=== PATIENT | male | born 1950 | race Caucasian/White ===

== ENCOUNTER 2016-08-16 04:04 | Observation (INO) | payer MEDICARE ==
[2016-08-16] MEDS ORDERED: Aspirin Low Dose CHEW TAB* 81 MG PO ONE (05:32)
--- NOTE | 2016-08-16 05:32 | ED ---
Neurological HPI - HPI Summary HPI Summary: Patient presents for evaluation of intermittent word finding deficit and extremity paresthesia. He had right foot and left hand paresthesia Aylin, but woke this morning with what he describes as word finding deficit. Denies chest pain, systemic symtpoms, trauma, anticoagulant use. - History of Current Complaint Chief Complaint: EDGeneral Stated Complaint: GENERAL ILLNESS Time Seen by Provider: 08/16/16 05:15 Hx Obtained From: Patient Onset/Duration: Gradual Onset Timing: Intermittent Episodes Lasting: - minutes Current Severity: None Pain Intensity: 0 - Allergy/Home Medications Allergies/Adverse Reactions: Allergies Allergy/AdvReac Type Severity Reaction Status Date / Time No Known Allergies Allergy Verified 09/27/14 18:30 PMH/Surg Hx/FS Hx/Imm Hx Cardiovascular History: Reports: Hx Hypertension Musculoskeletal History: Denies: Hx Rheumatoid Arthritis, Hx Osteoporosis Infectious Disease History: No Infectious Disease History: Denies: Traveled Outside the [place] in Last 30 Days - Social History Alcohol Use: None Substance Use Type: Reports: None Smoking Status (MU): Never Smoked Tobacco Review of Systems All Other Systems Reviewed And Are Negative: Yes Physical Exam Triage Information Reviewed: Yes Vital Signs On Initial Exam: Initial Vitals Temp Pulse Resp BP Pulse Ox 98.5 F 70 18 168/111 99 08/16/16 04:05 08/16/16 04:05 08/16/16 04:05 08/16/16 04:05 08/16/16 04:05 Vital Signs Reviewed: Yes Appearance: Positive: Well-Appearing, No Pain Distress, Well-Nourished Skin: Positive: Warm, Skin Color Reflects Adequate Perfusion, Dry Head/Face: Positive: Normal Head/Face Inspection Eyes: Positive: Normal, EOMI, AMRIT Neck: Positive: Supple, Other: - No carotid bruits/thrills. Respiratory/Lung Sounds: Positive: Clear to Auscultation, Breath Sounds Present Cardiovascular: Positive: Normal, RRR, Pulses are Symmetrical in both Upper and Lower Extremities Abdomen Description: Positive: Nontender, No Organomegaly, Soft Musculoskeletal: Positive: Normal, Strength/ROM Intact Neurological: Positive: Normal, Sensory/Motor Intact, Alert, Oriented to Person Place, Time, CN Intact II-III, Reflexes Intact, Normal Gait, Heel to Toe, Finger to Nose, Facial Symmetry, Speech Normal. Negative: Receptive Aphasia, Expressive Aphasia, Cerebellar Dysfunction, Disoriented, Facial Droop, Focal Deficit @, Slurred Speech, Dysphagia, Rhomberg, Ataxic Gait, Dysarthric Aphasia , Pronator Drift Present Diagnostics - Vital Signs Vital Signs Temp Pulse Resp BP Pulse Ox 08/16/16 04:24 72 13 96 08/16/16 04:23 166/99 08/16/16 04:05 98.5 F 70 18 168/111 99 - Laboratory Result Diagrams: 08/16/16 06:02 08/16/16 06:02 Lab Statement: Any lab studies that have been ordered have been reviewed, and results considered in the medical decision making process. 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/Release Non-Paretic Hand: Both Correctly Best Gaze (Only Horizontal Eye Movement): Normal Visual Field Testing: No Visual Loss Facial Paresis-Pt to Smile & Close Eyes or Grimace Symmetry: Normal/Symmetrical Motor Function - Right Arm: No Drift-Holds 10 Seconds Motor Function - Left Arm: No Drift-Holds 10 Seconds Motor Function - Right Leg: No Drift-Holds 10 Seconds Motor Function - Left Leg: No Drift-Holds 10 Seconds Limb Ataxia-Must be out of Proportion to Weakness Present: Absent Sensory (Use Pinprick to Test Arms/Legs/Trunk/Face): Normal Best Language (Describe Picture, Name Items): No Aphasia Dysarthria (Read Several Words): Normal Extinction and Inattention: No Abnormality Total Score: 0 Course/Dx - Differential Dx Differential Diagnoses Neuro: Positive: Dysrhythmia, Metabolic Abnormality, Transient Ischemic Attack, Other - Unclear if this is true TIA, but with age and HTN will admit for observation and neurology consult. - Diagnoses Provider Diagnoses: TIA (transient ischemic attack) Discharge - Discharge Plan Condition: Stable Disposition: ADMITTED TO [facility]
[2016-08-16 06:17] LABS: Hematocrit 49 % (42-52); Hemoglobin 16.7 g/dl (14.0-18.0); Mean Corpuscular HGB Conc 34 g/dl (31-36); Mean Corpuscular Hemoglobin 31 pg (27-31); Mean Corpuscular Volume 90 fL (80-94); Mean Platelet Volume 8 um3 (7.4-10.4); Red Blood Count 5.45 10^6/ul (4.0-5.4); Red Cell Distribution Width 13 % (10.5-15); White Blood Count 6.1 10^3/ul (3.5-10.8)
[2016-08-16 06:28] LABS: BUN/Creatinine Ratio 16.3 (8-20); Calcium 8.8 mg/dL (8.6-10.3); EGFR African American 114.8 (>60); EGFR Non-African American 89.2 (>60); Potassium 3.4 mmol/L (3.5-5.0)
[2016-08-16 08:26] LABS: Urine Bilirubin Negative (Negative); Urine Glucose Negative (Negative); Urine Nitrite Negative (Negative)
[2016-08-16] MEDS ORDERED: Potassium Chlor TAB* 20 MEQ TAB.ER PO ONE (08:52)
--- NOTE | 2016-08-16 09:37 | RAD ---
INDICATION: Confusion COMPARISON: None. TECHNIQUE: Contiguous axial sections of the brain were obtained from the skull base to the vertex without contrast. FINDINGS: The ventricles, cisterns and sulci are within normal limits. There is periventricular and subcortical white matter hypoattenuation compatible with chronic microvascular disease. The left basal ganglia (image 16) there is a 6 mm focal hypodensity. Otherwise the figueroa-white matter differentiation is adequately maintained and there is no sulcal effacement. No significant focal abnormality or mass effect is present. There is no evidence for intracranial hemorrhage. Calcified atherosclerosis is noted at the left vertebral and right petrous carotid arteries. No significant focal osseous abnormality is present. The visualized portion of the paranasal sinuses appear clear. There is partial dependent effusion of the left mastoid air cells and overall the left mastoid air cells are hypoplastic relative to the right. IMPRESSION: 1. CT findings are most compatible with chronic microvascular disease. The left basal ganglia there is an age indeterminant focal hypodensity that could represent a lacunar infarction or perivascular space. The patient is exhibiting focal neurologic deficits further characterization can be made with MRI. 2. Dependent, partial left mastoid air cell effusion in the overall hypoplastic left mastoid air cells relative to the right. Please correlate to any signs or symptoms of mastoiditis (e.g. point tenderness at mastoid process) and history of surgery in this area.
--- NOTE | 2016-08-16 09:38 | RAD ---
INDICATION: Left-sided chest pain COMPARISON: CT dated September 27, 2014 TECHNIQUE: PA and lateral views of the chest were obtained. FINDINGS: The heart and mediastinum are normal in size and contour. The lungs are grossly clear. There is no evidence of large pleural effusion. Visualized bones are normal for the patient's age. There is no radiographic evidence of free air beneath the diaphragm IMPRESSION: No radiographic evidence of acute cardiopulmonary disease.
[2016-08-16] MEDS ORDERED: Acetaminophen TAB* 325 MG PO PRN (09:40)
[2016-08-16] MEDS ORDERED: PROCHLORPERAZINE INJ 5 MG/ML 2 ML VIAL IV PRN (09:40)
[2016-08-16 10:04] LABS: HDL Cholesterol 32.5 mg/dL
[2016-08-16] MEDS ORDERED: Pneumococcal *Vac Polyvalent 0.5 ML VIAL IM ONE (12:00)
[2016-08-16] MEDS: Heparin VIAL(*) 5000 UNITS/ML VIAL (FIVE THOUSAND) SUBCUT SCH ×2 (13:30→21:24)
--- NOTE | 2016-08-16 13:34 | HP ---
CC: Frida Mims MD; Nahed Pena MD, Neurologist HISTORY AND PHYSICAL: DATE OF ADMISSION: 08/16/16 TIME OF EVALUATION: 8:30 a.m. PRIMARY CARE PHYSICIAN: Frida Mims MD CONSULTING NEUROLOGIST: Nahed Pena MD CHIEF COMPLAINT: "I feel funny." HISTORY OF PRESENT ILLNESS: Mr. Fatima is a 66-year-old male with a past medical history of hyperte nsion, not on medication, who presents to the emergency room with complaints of "feeling funny." Pl ease note that the patient is a poor historian and very vague and is very difficult to pinpoint his symptoms. He states he was in his usual state of health until 5 days ago when he went to bed around 10 at [facility] and he notes that his left hand was numb. The numbness lasted for 30 minutes and he later on deve loped right foot numbness. He did not notice any weakness associated with it. He was able to sleep and the next day when he woke up, he was feeling well with no symptoms. Later on, during the day, he developed what he called "queasiness" that he does not describe as nausea, as dizziness, or light headedness, but he cannot tell me exactly what he felt like. He just note that he felt different fr om his usual. He did not seek medical attention, but he at that point was feeling that probably he should have come to the emergency room the night before when he developed the numbness. Yesterday, he was in his usual state of health when he went to bed and he usually wakes up multiple times during the night to go to the bathroom and when he woke up at 3 in the morning, he states that he was having difficulty finding words and that combined with the symptoms he had had the other nig ht made him decide to call 911. He denies dysarthria, but states that he he had difficulty thinking about what he wanted to say to EMS. He acknowledges that he was anxious at that time with what coul d be happening to him. He denies chest pain, palpitations, any localized weakness, visual change, shortness of breath, or u rinary or GI complaints. PAST MEDICAL HISTORY: Hypertension. The patient states he was diagnosed by Dr. Mims and she had recommended antihypertensive medications, but he declined. He does not have a pressure monitor at [facility], so he does not know what his usual numbers are. PAST SURGICAL HISTORY: None. MEDICATION LIST: None. ALLERGIES: No known drug allergies. FAMILY HISTORY: Father needed stents for coronary artery disease. Mother had a stroke. Brother an d sister had hypertension. SOCIAL HISTORY: The patient states that he sporadically drinks red wine. Denies any tobacco or kim g use. 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 Surrogate decision maker is his brother, Jean-Paul Fatima, phone number is [phone]. REVIEW OF SYSTEMS: A 14-point review of system was performed and all the negative and positive find ings are in the HPI. PHYSICAL EXAMINATION GENERAL: The patient is a pleasant gentleman, lying in bed, in no acute distress. VITAL SIGNS: Temperature 98, heart rate is 69, respiratory rate 14, oxygen saturation 98% on room a ir, and blood pressure is 156/99. HEENT: Pupils are equal. Moist mucous membranes. There is no carotid bruits. CHEST: Breath sounds present bilaterally. No added sounds. CVS: Normal S1, S2. Regular rate and rhythm. No murmurs. ABDOMEN: Soft, nontender, and nondistended. Bowel sounds present. EXTREMITIES: No edema. NEUROLOGIC: He is alert, awake, and oriented x3. Face is symmetric. Speech is clear. Power is 5/ 5 in all 4 extremities. Sensation is intact. DIAGNOSTIC STUDIES/LAB DATA: The patient had a CBC that showed a WBC of 6.1, hemoglobin 16.7, jessica tocrit 49, and platelets of 131. Chemistry showed a sodium of 136, potassium 3.4, chloride of 106, bicarb of 27, BUN of 14, creatinine of 0.86, glucose of 94, and calcium 8.8. Urinalysis was normal. CT of the brain shows findings of chronic microvascular disease. In the left basal ganglia, there i s an age-indeterminate focal hypodensity that could represent a lacunar infarction or perivascular s pace. Dependent partial left mastoid air cell effusion in the overall hypoplastic left mastoid air cells collected to the right. Chest x-ray showed no radiographic evidence of acute cardiopulmonary disease. EKG done on August 16 at 6:19 a.m. shows sinus rhythm at 66 beats per minute with no ST-T change s. No significant change when compared to his prior EKG from January 2015. ASSESSMENT AND PLAN: Mr. Fatima is a 66-year-old male with a past medical history of untreated hype rtension who presents to the emergency room with self-limited episodes of left hand numbness, right foot numbness, word-finding difficulty, and queasiness that he cannot really explain exactly what he means. He is going to be admitted for further workup of possible transient ischemic attack. 1. Possible transient ischemic attack: The patient's symptoms are nonspecific, but he does have ri sk factors with his uncontrolled hypertension and his official CT of the brain report suggests micro vascular disease and a possible old lacunar infarct on the left basal ganglia. He will be admitted as observation to the telemetry floor. We are going to check CTA of head and ne ck looking for possible stenosis. We are going to check an echocardiogram with bubble study and a l ipid profile. Neurology consultation was requested with Dr. Pena and the patient will be monitored on telemetry w ith frequent neurological checks. 2. Hypertension: This appears to be a chronic issue. At this point with the possibility of a glass sient ischemic attack, I am going to just monitor his blood pressure and not start any medication un less he goes over 180/100, but he will probably benefit from further evaluation by Dr. Mims as out patient to start an antihypertensive regimen. 3. DVT prophylaxis: The patient has a score 2 on DVT Prophylaxis Risk Assessment Guide and he will receive subcutaneous heparin. 4. Code status: Full. TIME SPENT: Approximately 65 minutes was spent with the patient interview, medical records review, physical examination to complete this admission, and more than half this time was spent [id number] with the patient and coordination of care. [id number]/[facility] #: [id number]
[2016-08-16] MEDS ORDERED: Iohexol 350* (CONTRAST) 500 ML MDV IV SCH (13:52)
--- NOTE | 2016-08-16 18:30 | RAD ---
CPT II: CPT II Codes: 3100F INDICATION: Confusion. COMPARISON: Noncontrast CT of the brain same date TECHNIQUE: A CT angiogram of the head and neck was performed with 80 cc of Omnipaque 350. Contiguous axial sections were obtained from the thoracic inlet through the [place]. Images were reconstructed in the sagittal, coronal planes and in a 3-D volume rendered format. The distal cervical internal carotid artery diameter is used as the denominater for stenosis measurement. CTA NECK: The visualized lung apices exhibit mild centrilobular emphysematous changes. Incidentally noted the left common carotid artery brachiocephalic trunk share an origin compatible with a "bovine arch". The common and internal carotid arteries are patent without hemodynamically significant stenosis. Right: Just below the carotid bifurcation the common carotid artery measures 7 mm in diameter. There is partially calcified atherosclerosis of the carotid bulb and the internal carotid artery measures 6 mm in diameter and immediately after the bifurcation. This yields approximately 15% degree stenosis on the right. Left: Immediately below the carotid bifurcation the common carotid artery measures 10 mm in diameter. Immediately after the bifurcation the internal carotid artery measures 8 mm in diameter. There is a mild degree of noncalcified atherosclerosis of the carotid bulb yielding a proximally 20% degree stenosis. The vertebral arteries are patent without gross abnormality. CTA of the brain: The internal carotid, anterior and middle cerebral arteries appear are patent without high grade stenosis or occlusion. The vertebral, basilar and posterior cerebral arteries appear patent without high grade stenosis or occlusion. The left posterior communicating artery is diminutive relative to the right, but the [place] is complete. No focal luminal filling defect, aneurysm or vascular malformation is seen. IMPRESSION: 1. According to the nascet criteria there is approximately 50% degree stenosis at the right common carotid artery and 20% degree stenosis on the left. 2. There are no definite focal filling defects or other acute arterial abnormalities.
--- NOTE | 2016-08-16 22:17 | CONS ---
CC: Dr. Mims NEUROLOGY CONSULTATION: DATE OF CONSULT: 08/16/16 REQUESTING PHYSICIAN: Lacey Watkins MD. PRIMARY CARE PHYSICIAN: Dr. Mims. REASON FOR CONSULT: Possible TIA. HISTORY OF PRESENT ILLNESS: Trey Fatima is a 66-year-old man with a history of untreated hypertension, who presented to the emergency department overnight with complaint of "feeling funny" and some word finding difficulties. He gets up multiple times at night to use the restroom and upon coming back to bed he felt funny, but he cannot describe this further. He denies lightheadedness, achiness or nausea as the cause for not feeling right. At that point in my history, he noted that as the only symptom that prompted him to call 911 in the context of previously experiencing left hand numbness and right foot numbness 5 days prior, but in my discussion with Dr. Watkins, she had mentioned some word finding difficulties, which he then endorsed on direct questioning. He states that he had trouble thinking of words, though he did not have any difficulty calling 911 for an ambulance. He thinks these symptoms last night lasted approximately 15 minutes and that the symptoms 5 days ago of left hand numbness and right foot numbness may have lasted between 1 and 3 hours. He thinks the left hand went numb first followed by the right foot and then they were numb simultaneously. He also notes a many-year history of wavy lines in his vision off to the left, which occur on an intermittent basis and last for about 15 minutes. He has no headaches following this, though an hand tube bender has suggested that they may be migraine aura. He does not recall whether he had any of this visual phenomenon with his numbness of the hand and foot 5 days ago , but does not think he had any last night. Neurology consultation was requested due to the possibility of TIA. PAST MEDICAL HISTORY: Hypertension for which Dr. Mims has suggested treatment , but the patient has been resistant. Several years ago, he had sudden hearing loss in the left ear, which came back after a day or two and he was given steroids. PAST SURGICAL HISTORY: None. MEDICATIONS: Multivitamin. ALLERGIES: No known drug allergies. FAMILY HISTORY: Father with coronary artery disease, status post stents. Mother with strokes. Brother and sister with hypertension. 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 He drinks occasionally. He denies tobacco or illicit drug use. Lives alone REVIEW OF SYSTEMS: He endorses snoring at night, but denies significant daytime somnolence or feeling poorly rested upon awakening in the morning. He is not aware if he has apneas during the night. He denies any chest pains or palpitations, no breathing difficulties, no skin rashes, no joint swelling. He does endorse some bilateral knee pain, which he attributes to kneeling recently. PHYSICAL EXAMINATION: Vital Signs: Temperature 98.2, blood pressure 153/98, oxygen saturation is 100% on room air. His blood pressure on admission at 4 a.m. was 168/111 and then shortly thereafter 166/99. General Examination: The patient is a well-appearing pleasant man who appears his stated age. Heart revealed a regular rate and rhythm with no murmurs, rubs or gallops. Lungs are clear to auscultation bilaterally. There were no carotid bruits. On neurologic examination, he is fully awake, alert, and oriented. His speech is clear without dysarthria or aphasia. On cranial nerve testing, pupils are equal, round, and reactive from 3 to 2 mm bilaterally. Funduscopic exam was benign. Versions were full without nystagmus. Visual wilburn are full to confrontation. Facial sensation and musculature was full and symmetric. Palate elevates symmetrically and the tongue is midline. Shoulder shrug is full and symmetric. On motor testing, he has no pronator drift. Bulk and tone are normal in the upper and lower extremities with full strength. Sensation is intact to light touch in the upper and lower extremities. [id number] is intact without ataxia. Reflexes are 2+ throughout the upper and lower extremities with downgoing toes bilaterally. Initially, when he stood up and narrowed his base in order to perform the Romberg, he swayed back and forth, and then sat down on the bed, and indicated he thought he was unsteady because he needed to urinate. Upon returning from the bathroom, his Romberg was steady. His gait was narrow based and very steady and he was able to heel and toe walk. DIAGNOSTIC STUDIES/LAB DATA: Laboratory data reviewed includes CBC, which was notable for a slightly low platelet count of 131. Chemistry profile notable for a slightly low potassium of 3.4. Lipid profile, triglycerides 74, total cholesterol 104, LDL 57, and HDL 32.5. Urinalysis was negative. Noncontrast brain CT was personally reviewed and shows some hypoattenuation in the deep white matter suggestive of chronic small vessel ischemic disease. In addition, there is a more focal area of hypodensity in the left basal ganglia, which may be an old lacunar infarct versus prominent perivascular space. CT angiogram of the head and neck was personally reviewed and is not yet read by the radiologist, but on my review there is no significant atherosclerotic disease and no areas of occlusion or significant stenosis. IMPRESSION: Mr. Fatima is a 66-year-old man with history of hypertension that has not been treated, who presented to the emergency department with transient neurologic symptoms last night of word finding difficulties in the setting of recent transient sensory deficit involving the left hand and the right foot. While the episode last night may represent a transient ischemic attack, it is difficult to ascribe all of his recent symptoms to ischemic events given the fact that this would imply multifocal areas of the brain being involved. He does have a risk factor for stroke in his untreated hypertension, but typically this would lead to more focal symptoms in a single brain region. It is unclear whether anxiety could have been playing a role in some of these symptoms. At this point, he is undergoing a transient ischemic attack workup and remains on telemetry for monitoring for atrial fibrillation and echocardiogram is pending. Aspirin was given in the emergency department last night and is continued on the floor here today. His blood pressure is not yet being treated, but as an outpatient, I believe he is coming around to the fact that he should begin a medication for a treatment of the blood pressure. His lipid profile is actually quite good and so I would not suggest a statin at this point. As an outpatient, I think he would benefit from an MRI scan both to assess whether there has been any small stroke with these recent episodes and also to assess the burden of small vessel ischemic changes that may be attributable to his hypertension as this may improve his willingness to treat his hypertension. Thank you for this consultation. [id number]/[facility] #: [id number] JOANNA
[2016-08-17] MEDS: Heparin VIAL(*) 5000 UNITS/ML VIAL (FIVE THOUSAND) SUBCUT SCH ×2 (05:03→13:40)
[2016-08-17] MEDS ORDERED: Aspirin EC Low Dose* 81 MG TAB.EC PO SCH (09:00)
--- NOTE | 2016-08-17 14:31 | PN ---
Progress Note - Progress Note Note: Discharge Note Primary diagnosis: suspicion of TIA Secondary hypertension: uncontrolled hypertension Procedures: none Consults: Dr Pena of neurology Pertinent lab/radiology/other results: CTA head/neck: 15-20% bilateral carotid stenosis echo: moderate LVH, diastolic dysfunction Telemetry: no arrhythmias Tests pending upon discharge: renin, aldosterone consider outpatient MRI brain Physical exam: Vital Signs - 8 hr 08/17/16 08/17/16 08/17/16 07:28 07:45 13:19 Temperature 36.7 C Pulse Rate 67 75 Respiratory 16 16 17 Rate Blood Pressure 150/83 172/100 (mmHg) O2 Sat by Pulse 100 Oximetry Alert, no distress CN II-XII intact Motor 5/5 throughout Speech intact abnormal excess eye contact
[2016-08-17 14:55] LABS: Magnesium 2.2 mg/dL (1.9-2.7)
[2016-08-17] MEDS ORDERED: amLODIPine TAB* 5 MG PO SCH (15:00)
--- NOTE | 2016-08-17 15:17 | ECHO ---
Patient: KOURTNEY HOBBS [facility] Rec#: [id number] : 1950 Date: 08/17/2016 Age: 66y Height: 182.9 cm / 72.0 in Weight: 102.5 kg / 225.9 lbs Sex: M BSA: 2.2 Room#: 444 Admit Date#: 08/16/2016 Type: Inpatient Referring: Lacey Mesa MD Reading: Braydon Vargas MD Street Commissioner: Nenita Tatum RN RDCS CC: Frida Mims MD Transthoracic Echocardiogram Indication: TIA BP: 147/90 HR: 64 Rhythm: NSR Findings History: Untreated HTN. This exam was ordered with a bubble study. However, the patient refused to have the bubble study performed despite an extensive explanation of the benefit of the information that would be obtained. The patient's nurse was informed and will notify the patient's care provider. Technical Comments: The study is technically limited due to patient body habitus. Completed at 1220. Left Ventricle: The left ventricular chamber size is normal. Moderate concentric left ventricular hypertrophy is observed. Septal wall hypertrophy is observed.measuring 1.7cm. Global left ventricular wall motion and contractility are within normal limits. There is normal left ventricular systolic function. The estimated ejection fraction is 55-60%. Abnormal left ventricular diastolic filling is observed, consistent with impaired relaxation. Left Atrium: The left atrium is slightly dilated. Right Ventricle: The right ventricular chamber size and systolic function are within normal limits. Right Atrium: The right atrial cavity size is normal. Aortic Valve: The aortic valve is trileaflet. The aortic valve leaflets are mildly thickened. There is mild aortic regurgitation. There is no evidence of aortic stenosis. Mitral Valve: The mitral valve leaflets are mildly thickened. There is trace to mild mitral regurgitation. There is no evidence of mitral stenosis. Tricuspid Valve: The tricuspid valve leaflets are normal. There is trace tricuspid regurgitation. Unable to estimate the right ventricular systolic pressure. Pulmonic Valve: The pulmonic valve structure is not well visualized. There is a trace pulmonic regurgitation. There is no pulmonic stenosis. Pericardium: There is no significant pericardial effusion. A pericardial fat pad is visualized. Aorta: There is mild dilatation of the ascending aorta. There is no dilatation of the aortic arch. There is moderate dilatation of the aortic root. Pulmonary Artery: The main pulmonary artery is not well visualized. Venous: The venous system is not well visualized. The inferior vena cava is not visualized. Summary: There was not any prior study for comparison. Conclusions The left ventricular chamber size is normal. Moderate concentric left ventricular hypertrophy is observed. Septal wall hypertrophy is observed.measuring 1.7cm. The estimated ejection fraction is 55-60%. Abnormal left ventricular diastolic filling is observed, consistent with impaired relaxation. The left atrium is slightly dilated. There is mild aortic regurgitation. There is trace to mild mitral regurgitation. There is trace tricuspid regurgitation. There is a trace pulmonic regurgitation. There is mild dilatation of the ascending aorta. There is moderate dilatation of the aortic root. Measurements Name Value Normal Range RVDdMajor (2D) 4 cm (2.2 - 4.4) RAd ISD 4CH 4.7 cm (3.4 - 4.9) RA (A4C)W 3.3 cm (2.9 - 4.6) IVSd (2D) 1.7 cm (0.6 - 1) LVPWd (2D) 1.3 cm (0.6 - 1) LVIDd (2D) 4.8 cm (3.6 - 5.4) LVIDs (2D) 3.3 cm - LV FS (2D) 31 % (25 - 45) Aortic Annulus 2.9 cm (1.4 - 2.6) Ao root diameter (2D) 4.2 cm (2.1 - 3.5) Ascending Ao 3.7 cm (2.1 - 3.4) Aortic arch 2.9 cm (1.8 - 3.4) LA dimension (AP) 2D 4.3 cm (2.3 - 3.8) LAd ISD 4CH 5 cm (2.9 - 5.3) LA ISD 4CH W 4 cm (2.5 - 4.5) Name Value Normal Range LA ESV SP 4CH (A/L) 45 ml - LA ESV SP 2CH (A/L) 83 ml - LA ESV BP (A/L) 70 ml - LA ESV BP (A/L) index 31 ml/m2 - LA ESV SP 4CH (MOD) 39 ml - LA ESV SP 2CH (MOD) 77 ml - Name Value Normal Range MV E-wave Vmax 0.44 m/sec - MV deceleration time 302 msec - MV A-wave Vmax 0.73 m/sec - MV E:A ratio 0.6 ratio - LV septal e' Vmax 0.05 m/sec - LV lateral e' Vmax 0.09 m/sec - LV E:e' septal ratio 8.8 ratio - LV E:e' lateral ratio 4.9 ratio - Name Value Normal Range AV Vmax 1.5 m/sec - LVOT Vmax 1.4 m/sec - KEITH Vmax 0.9 m/sec - Name Value Normal Range PV Vmax 0.83 m/sec -
[2016-08-17 16:20] VITALS: BP 169/105
--- NOTE | 2016-08-17 21:40 | DS ---
DISCHARGE SUMMARY: DATE OF ADMISSION: 08/16/16 DATE OF DISCHARGE: 08/17/16 PRIMARY DIAGNOSIS: Possible transient ischemic attack with expressive aphasia, fully resolved. SECONDARY DIAGNOSES: 1. Uncontrolled hypertension, suspicion of mineralocorticoid excess hyperaldosteronism. 2. Left ventricular hypertrophy and diastolic dysfunction on echocardiogram. MEDICATIONS ON DISCHARGE: 1. Amlodipine 5 mg p.o. q. day. 2. Aspirin 81 mg p.o. q. day. HOSPITAL COURSE: The patient was admitted through the emergency department with some vague symptoms that included feeling funny and his left hand numbness. The head CT showed left basal ganglia age-indeterminate hypodensity that could be a lacunar infarct. The patient also had during the hospital stay , a CT angiogram of the head and neck that showed no large branch occlusions and did show a 15% to 20% stenosis on the bilateral carotid arteries. Chest x- ray was negative for infiltrates or effusions. Laboratory tests were notable for potassium 3.4, creatinine 0.86, his white count was 6.1, platelet count was 131. Urinalysis was negative. Echocardiogram showed no valvular disease but did show LVH and some diastolic dysfunction. The patient was seen in consultation by Dr. Pena of Neurology and she was concerned about the uncontrolled hypertension due to the patient's refusal of previous treatment as well as possible word-finding difficulties and transient sensory deficit. Dr. Pena recommended treatment of hypertension and an outpatient MRI to further characterize his EMBEDDER lesions. On the day of discharge, the patient was ambulatory, has intact speech, no new neurologic complaints, no new neurologic signs on physical exam. DISPOSITION: To home. DIET: Should be low salt. ACTIVITY: Should be as tolerated. [id number] #: [id number] [facility]
== END 2016-08-17 17:15 | disposition home or self-care (01) ==
LOC: ED 04:04 → MEDTELE 06:46
PROVIDERS: ADMIT Internal Medicine; ATTEND Internal Medicine
DX: G45.9 Transient cerebral ischemic attack, unspecified (principal); I10 Essential (primary) hypertension; R20.9 Unspecified disturbances of skin sensation; I51.7 Cardiomegaly; I65.23 Occlusion and stenosis of bilateral carotid arteries; Z23 Encounter for immunization
CPT/HCPCS: 36415; 70450; 70496; 70498; 71020; 80048; 80061; 81003; 82088; 83735; 84244; 85027; 90471; 90732; 93005; 93306; 96372; 99284; A9270-GY; G0009; G0378; G8978-GP-CI; G8979-GP-CH; J1644; Q9967

== ENCOUNTER 2016-12-03 15:21 | Emergency (ER) | payer MEDICARE ==
[2016-12-03] MEDS ORDERED: NS 0.9% 1000 ML* 1,000 ML IV SCH (16:00)
--- NOTE | 2016-12-03 16:35 | RAD ---
INDICATION: TIA COMPARISON: August 16, 2016 TECHNIQUE: Noncontrast axial source images were acquired from the skull base to the vertex. FINDINGS: Ventricles/sulci: The ventricles and cisterns are normal in size and configuration for age. Brain parenchyma: There is no focal parenchymal finding, evidence of intracranial mass, or intracranial mass effect. Intracranial hemorrhage:None. Extra-axial spaces: There are no abnormal extra axial fluid collections or evidence of extra-axial mass. Calvarium: There is no calvarial fracture or other calvarial abnormality. Scalp: There is no evidence of scalp or extracalvarial soft tissue abnormality. Paranasal sinuses/mastoid: The paranasal sinuses are clear. There is left mastoiditis. Other: None. IMPRESSION: No acute intracranial findings.
[2016-12-03 19:01] VITALS: BP 152/95
--- NOTE | 2016-12-03 19:51 | ED ---
Jose Godoy SooYoung, scribed for Michele Zhang MD on 12/03/16 at 1613 . Neurological HPI - HPI Summary HPI Summary: A 66 yo M presents to ED with c/o "wavy lines" in L-side of his field of vision onset this AM. Lasted approx 10 minutes. Associated sx: mild RUANO, mild neck soreness. Denies: weakness, numbness in extremities, slurred speech. He notes not sleeping last night. Dr. Mims increased the dosage for his BP med. Currently taking baby aspirin and amlodipine. Pert PMx: Pt had imaging done in September 2016 for possible mini-stroke, sx then include difficulty finding words. - History of Current Complaint Chief Complaint: EDNeurologicalDeficit Stated Complaint: VISION IS BLURY Hx Obtained From: Patient, Medical Records Onset/Duration: Sudden Onset, Resolved Timing: Intermittent Episodes Lasting: - 10-15 mins Onset Severity: Mild Current Severity: Mild Pain Intensity: 0 Pain Scale Used: 0-10 Numeric Character: Visual Changes Associated Signs and Symptoms: Positive: Headache - mildly, Pain - mild neck pain. Negative: Weakness, Impaired Speech, Numbness - Additional Pertinent History Primary Care Physician: DEANGELO - Allergy/Home Medications Allergies/Adverse Reactions: Allergies Allergy/AdvReac Type Severity Reaction Status Date / Time No Known Allergies Allergy Verified 09/04/16 10:15 PMH/Surg Hx/FS Hx/Imm Hx Previously Healthy: No Endocrine/Hematology History: Denies: Hx Diabetes Cardiovascular History: Reports: Hx Hypertension Denies: Hx Pacemaker/ICD GI History: Reports: Other GI Disorders - occasional gas History: Denies: Hx Renal Disease Musculoskeletal History: Denies: Hx Rheumatoid Arthritis, Hx Osteoporosis Sensory History: Denies: Hx Hearing Aid Neurological History: Reports: Hx Transient Ischemic Attacks (TIA) - possible Psychiatric History: Reports: Hx Anxiety - possible anxiety disorder Denies: Hx Panic Disorder Infectious Disease History: Reports: Hx Shingles Denies: Traveled Outside the [place] in Last 30 Days - Family History Known Family History: Positive: Cardiac Disease, Hypertension, Other - CVA - Social History Occupation: Retired Lives: Alone Alcohol Use: None Hx Substance Use: No Substance Use Type: Reports: None Hx Tobacco Use: No Smoking Status (MU): Never Smoked Tobacco Review of Systems Negative: Fever Positive: Other - pos: "wavy lines" in field of vision on L side Positive: Arthralgia - mild neck pain Neurological: Other - neg: numbness, difficulty finding words. Positive: Headache - mild. Negative: Weakness All Other Systems Reviewed And Are Negative: Yes Physical Exam Triage Information Reviewed: Yes Vital Signs On Initial Exam: Initial Vitals Temp Pulse Resp BP Pulse Ox 98.7 F 72 16 172/101 99 12/03/16 15:24 12/03/16 15:24 12/03/16 15:24 12/03/16 15:24 12/03/16 15:24 Vital Signs Reviewed: Yes Appearance: Positive: Well-Appearing, No Pain Distress Skin: Positive: Warm, Skin Color Reflects Adequate Perfusion, Dry Head/Face: Positive: Normal Head/Face Inspection Eyes: Positive: EOMI, AMRIT ENT: Positive: Normal ENT inspection Neck: Positive: Supple, Nontender Respiratory/Lung Sounds: Positive: Clear to Auscultation, Breath Sounds Present Cardiovascular: Positive: RRR Musculoskeletal: Positive: Normal, Strength/ROM Intact Neurological: Positive: Normal, Sensory/Motor Intact, Alert, Oriented to Person Place, Time, Other - GCS: 15 Psychiatric: Positive: Affect/Mood Appropriate - [place] Coma Scale Best Eye Response: 4 - Spontaneous Best Motor Response: 6 - Obeys Commands Best Verbal Response: 5 - Oriented Diagnostics - Vital Signs Vital Signs Temp Pulse Resp BP Pulse Ox 12/03/16 15:24 98.7 F 72 16 172/101 99 - Laboratory Lab Statement: Any lab studies that have been ordered have been reviewed, and results considered in the medical decision making process. - CT BRAIN CT Interpretation: No Acute Changes - IMPRESSION: No acute intracranial findings. CT Interpretation Completed By: Radiologist - EKG 1 EKG Rhythm: Sinus Bradycardia - [address] Segment: Normal Ectopy: None NIH Scale - NIH Scale Level of Consciousness: Alert/Keenly Responsive Ask Patient the Month and His/Her Age: Both Correct Ask Pt to Open/Close Eyes and Customs Entry Writer/Release Non-Paretic Hand: Both Correctly Best Gaze (Only Horizontal Eye Movement): Normal Visual Field Testing: No Visual Loss Facial Paresis-Pt to Smile & Close Eyes or Grimace Symmetry: Normal/Symmetrical Motor Function - Right Arm: No Drift-Holds 10 Seconds Motor Function - Left Arm: No Drift-Holds 10 Seconds Motor Function - Right Leg: No Drift-Holds 10 Seconds Motor Function - Left Leg: No Drift-Holds 10 Seconds Limb Ataxia-Must be out of Proportion to Weakness Present: Absent Sensory (Use Pinprick to Test Arms/Legs/Trunk/Face): Normal Best Language (Describe Picture, Name Items): No Aphasia Dysarthria (Read Several Words): Normal Extinction and Inattention: No Abnormality Total Score: 0 Re-Evaluation - Re-Evaluation 1 Re-Evaluation Time: 19:15 Change: Unchanged Comment: Discussing CT results and plan of action with pt. Will DC home. Course/Dx - Course Course Of Treatment: Pt is a 66 yo M presenting with c/o "wavy lines" in L-side of his field of vision onset this AM. Lasted approx 10 minutes. Associated sx: mild RUANO, mild neck soreness. Denies: weakness, numbness in extremities, slurred speech. Pert PMx: Pt had imaging done in September 2016 for possible mini-stroke, sx then include difficulty finding words. Consulted with Dr. Logan, neuro. Pt given fluids in ED. EKG is sinus oliver. DR LOGAN RECOMMENDS CTA HEAD AND NECK AND TO REPLACE ASPIRIN WITH PLAVIX 75MG. DR LOGAN ALSO RECOMMENDED AN MRI AND OPHTHALMOLOGY EVALUATION. PATIENT DECLINES HEAD CTA AT THIS TIME. HE HAS NO NEUROLOGIC DEFICIT IN EMERGENCY DEPARTMENT. DISCUSSED REPLACEMENT OF ASPIRIN WITH PLAVIX WITH PATIENT. HE WILL CONTACT DR MIMS TOMORROW OR RETURN TO THE EMERGENCY DEPARTMENT FOR THE CTA. DISCHARGE HOME STABLE. NO CRITICAL CARE TIME. - Diagnoses Provider Diagnoses: Transient vision disturbance - Physician Notifications Discussed Care Of Patient With: Vance Logan Time Discussed With Above Provider: 16:55 Discharge - Discharge Plan Condition: Stable Disposition: HOME Prescriptions: Clopidogrel TAB* [Plavix TAB*] 75 mg PO DAILY #30 tab Patient Education Materials: Blurred Vision (ED) Referrals: Frida Mims MD [Primary Care Provider] - Additional Instructions: FOLLOW UP WITH DR MIMS. CALL HER IN THE MORNING. DR LOGAN, THE NEUROLOGIST, RECOMMENDED A CTA OF THE HEAD AND NECK AND STARTING PLAVIX 75MG ONCE A DAY. REPLACE THE ASPIRIN WITH THE PLAVIX. DISCUSS GETTING THE CTA WITH DR MIMS; EITHER THROUGH HER OFFICE OR THE EMERGENCY DEPARTMENT. PLEASE ARRANGE TO HAVE A VISION EXAM BY AN DUMBWAITER OPERATOR. RETURN TO THE EMERGENCY DEPARTMENT FOR ANY WORSENING OF YOUR CONDITION; WEAKNESS , NUMBNESS, DIFFICULTY WITH SPEECH OR VISION OR QUESTIONS OR CONCERNS. The documentation as recorded by the Jose posada SooYoung accurately reflects the service I personally performed and the decisions made by , Michele Zhang MD.
== END 2016-12-03 20:03 | disposition home or self-care (01) ==
LOC: ED 15:21
DX: H53.9 Unspecified visual disturbance (principal); Z86.73 Personal history of transient ischemic attack (TIA), and cerebral infarction without residual deficits; I10 Essential (primary) hypertension
CPT/HCPCS: 70450; 93005; 99282